=== PATIENT | male | born 1955 | race Caucasian/White ===

== ENCOUNTER 2019-06-12 07:40 | Day surgery (SDC) | payer OTHER ==
[2019-06-10 15:16] VITALS: BMI 30.9
[2019-06-12 07:55] VITALS: TEMP 98
[2019-06-12] MEDS ORDERED: PROPOFOL 20 ML ONE ×4 (08:05)
[2019-06-12] MEDS ORDERED: LIDOCAINE HCL/PF 2% SDV 5ML VIAL ONE (08:05)
[2019-06-12 09:12] VITALS: BP 122/70; PULSE 69
--- NOTE | 2019-06-14 09:38 | PATH ---
Surgical Pathology Report Patient Name: LAKEISHA MARY [facility]. Rec. #: [id number] /Age/Gender: 1955 (Age: 64) / M Account: [id number] Location: [facility] Taken: 06/12/2019 Received: 06/12/2019 Reported: 06/14/2019 Physicians: Fernandez Badillo M.D. Specimen(s) Received POLYP SPLENIC FLEXURE Clinical History History of polyps Postoperative diagnosis: Colon polyp, diverticulosis Final Diagnosis COLON, SPLENIC FLEXURE, BIOPSY: TUBULAR ADENOMA. Electronically Signed John Hare M.D. Gross Description Received in formalin, labeled "biopsy splenic flexure" is a martinez, irregular portion of soft tissue measuring 0.5 cm. in greatest dimension. The specimen is submitted in toto in one cassette. 06/13/201906/13/2019
== END 2019-06-12 09:15 | disposition home or self-care (01) ==
LOC: FASU-ENDO 07:40
PROVIDERS: ATTEND Internal Medicine Gastroenterology
PROC: 0DBL8ZX Excision of Transverse Colon, Via Natural or Artificial Opening Endoscopic, Diagnostic (ICD-10-PCS; principal; 2019-06-12 08:23)
DX: Z12.11 Encounter for screening for malignant neoplasm of colon (principal); D12.3 Benign neoplasm of transverse colon; K57.30 Diverticulosis of large intestine without perforation or abscess without bleeding
CPT/HCPCS: 88305-TC